=== PATIENT | female | born 2000 | race Caucasian/White ===

== ENCOUNTER 2018-04-22 23:21 | Emergency (ER) | payer MEDICAID ==
--- NOTE | 2018-04-23 00:26 | ER Document Report ---
ED Medical Screen (RME) - General Chief Complaint: Probable Seizure Stated Complaint: POSSIBLE SEIZURE Time Seen by Provider: 04/23/18 00:24 Mode of Arrival: Ambulatory Information source: Patient Notes: 17-year-old female presents to ED for complaint of possible seizure at work at [employer]. She states she was at work when she suddenly got hot and dizzy. She states her hands felt numb and shaking. She states there was a customer trying to talk to her and she states she had to go to the bathroom. She states while she was in there she became very hot and told a staff member she had to go back and sit down at a andrade. She states on her way back to the bruise she began getting more dizzy and fell trying to hold onto the trash can. She states she could hear her by talking around her but she could not answer them or see them. She states the customer was trying to dump water down her throat and she was gagging and choking. She states that she knows her fingers were real stiff and she could not bend them and her manager film Told her to relax and let her bend the fingers. Patient states she could hear throughout the whole episode. 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 She states she has been having these seizures since she was a child. Patient is alert and oriented respirations regular and on labored speaking in full sentences walking with a even steady gait. I have greeted and performed a rapid initial assessment of this patient. A comprehensive ED assessment and evaluation of the patient, analysis of test results and completion of medical decision making process will be conducted by an additional ED providers. TRAVEL OUTSIDE OF THE [place] IN LAST 30 DAYS: No - Related Data Allergies/Adverse Reactions: No Known Drug Allergies Allergy (Verified 04/25/16 17:30) mosquitoes Allergy (Unknown, Uncoded 04/19/16 01:22) Edema Past Medical History - Social History Family history: DM, Malignancy Endocrine Medical History: Reports: Hx Diabetes Mellitus Type 2 - patient takes Glyburide Psychiatric Medical History: Reports: Hx Anxiety, Hx Bipolar Disorder, Hx Depression - Immunizations Immunizations up to date: Yes Hx Diphtheria, Pertussis, Tetanus Vaccination: Yes Physical Exam - Vital signs Vitals: Temp Pulse Resp BP Pulse Ox 98.7 F 91 H 16 127/68 H 100 04/22/18 23:29 04/22/18 23:29 04/22/18 23:29 04/22/18 23:29 04/22/18 23:29 Course - Vital Signs Vital signs: Temp Pulse Resp BP Pulse Ox 98.7 F 91 H 16 127/68 H 100 04/22/18 23:29 04/22/18 23:29 04/22/18 23:29 04/22/18 23:29 04/22/18 23:29 Doctor's Discharge - Discharge Referrals: BRENNON DANIEL MD [Primary Care Provider] - Follow up as needed
[2018-04-23 00:51] LABS: ABSOLUTE BASOPHILS # (AUTO) 0.1 10^3/uL (0.0-0.2); ABSOLUTE EOSINOPHILS # (AUTO) 0.4 10^3/uL (0.0-0.6); ABSOLUTE LYMPHOCYTES (AUTO) 4.8 10^3/uL (0.5-4.7); ABSOLUTE MONOCYTES (AUTO) 0.8 10^3/uL (0.1-1.4); ABSOLUTE NEUT (AUTO) 8.9 10^3/uL (1.7-8.2); BASOPHILS % (AUTO) 0.7 % (0-2); EOSINOPHILS % (AUTO) 2.4 % (0-6); HEMATOCRIT 41.9 % (36.0-47.0); HEMOGLOBIN 14.1 g/dL (12.0-15.5); MEAN CORPUSCULAR HEMOGLOBIN 30.2 pg (27.0-33.4); MEAN CORPUSCULAR HGB CONC 33.7 g/dL (32.0-36.0); MEAN CORPUSCULAR VOLUME 90 fl (80-97); MONOCYTES % (AUTO) 5.2 % (3-13); PLATELET COUNT 236 10^3/uL (150-450); RED BLOOD COUNT 4.67 10^6/uL (3.72-5.28); RED CELL DISTRIBUTION WIDTH 13.3 % (11.5-14.0); SEGMENTED NEUTROPHILS % (AUTO) 59.7 % (42-78); TOTAL CELLS COUNTED % (AUTO) 100 %; WHITE BLOOD COUNT 14.9 10^3/uL (4.0-10.5)
[2018-04-23 00:58] LABS: APPEARANCE,URINE CLOUDY; BILIRUBIN,URINE NEGATIVE (NEGATIVE); COLOR,URINE YELLOW; GLUCOSE, URINE NEGATIVE (NEGATIVE); KETONES,URINE TRACE mg/dL (NEGATIVE); LEUKOCYTE ESTERASE,URINE MODERATE (NEGATIVE); NITRITE,URINE NEGATIVE (NEGATIVE); PROTEIN,URINE NEGATIVE (NEGATIVE); URINE SPECIFIC GRAVITY 1.026
[2018-04-23 01:03] LABS: ALANINE AMINOTRANSFERASE 27 U/L (5-35); ALBUMIN 4.6 g/dL (3.7-5.6); ALKALINE PHOSPHATASE 100 U/L (50-135); ANION GAP 10 (5-19); ASPARTATE AMINO TRANSFERASE 23 U/L (5-30); BILIRUBIN,DIRECT 0.2 mg/dL (0.0-0.4); BILIRUBIN,TOTAL 0.5 mg/dL (0.2-1.3); BLOOD UREA NITROGEN 14 mg/dL (7-20); CARBON DIOXIDE 26 mmol/L (22-30); CHLORIDE 103 mmol/L (98-107); GLUCOSE 118 mg/dL (75-110); POTASSIUM 4.4 mmol/L (3.6-5.0); SODIUM 139.4 mmol/L (137-145); TOTAL PROTEIN 7.7 g/dL (6.3-8.2)
--- NOTE | 2018-04-23 02:11 | ER Document Report ---
ED General - General Chief Complaint: Probable Seizure Stated Complaint: POSSIBLE SEIZURE Time Seen by Provider: 04/23/18 00:24 Mode of Arrival: Ambulatory Notes: Patient is a 17-year-old female who presents with chief complaint of possible seizure while she was at work. Patient states that she has a history of pseudoseizures. Patient reports she was at work when she began shaking, she states she could hear everything going on around her however she could not respond. She states that she used to have pseudoseizures when she was in high school and was placed on disability for them. She states that she was taken off of disability 1 year ago and has begun working now two jobs and has had an increase in the number of seizures she is having. TRAVEL OUTSIDE OF THE [place] IN LAST 30 DAYS: No - Related Data Allergies/Adverse Reactions: No Known Drug Allergies Allergy (Verified 04/25/16 17:30) mosquitoes Allergy (Unknown, Uncoded 04/19/16 01:22) Edema Past Medical History - General Information source: Patient - Social History Smoking Status: Current Some Day Smoker Frequency of alcohol use: None Drug Abuse: None Family History: Arthritis, DM, Hypertension, Malignancy, Thyroid Disfunction Endocrine Medical History: Reports: Hx Diabetes Mellitus Type 2 - patient takes Glyburide Psychiatric Medical History: Reports: Hx Anxiety, Hx Bipolar Disorder, Hx Depression Surgical Hx: Negative - Immunizations Immunizations up to date: Yes Hx Diphtheria, Pertussis, Tetanus Vaccination: Yes Review of Systems - Review of Systems Neurological/Psychological: Seizure -: Yes All other systems reviewed and negative Physical Exam - Vital signs Vitals: Temp Pulse Resp BP Pulse Ox 98.7 F 91 H 16 127/68 H 100 04/22/18 23:29 04/22/18 23:29 04/22/18 23:29 04/22/18 23:29 04/22/18 23:29 - Notes Notes: PHYSICAL EXAMINATION: GENERAL: Well-appearing, well-nourished and in no acute distress. HEAD: Atraumatic, normocephalic. EYES: Pupils equal round and reactive to light, extraocular movements intact, conjunctiva are normal. ENT: Nares patent, oropharynx clear without exudates. Moist mucous membranes. NECK: Normal range of motion, supple without lymphadenopathy LUNGS: Breath sounds clear to auscultation bilaterally and equal. No wheezes rales or rhonchi. HEART: Regular rate and rhythm without murmurs ABDOMEN: Soft, nontender, nondistended abdomen. No guarding, no rebound. No masses appreciated. Female : deferred Musculoskeletal: Normal range of motion, no pitting or edema. No cyanosis. NEUROLOGICAL: Cranial nerves grossly intact. Normal speech, normal gait. Normal sensory, motor exams PSYCH: Normal mood, normal affect. SKIN: Warm, Dry, normal turgor, no rashes or lesions noted. Course - Re-evaluation Re-evalutation: Patient is alert, oriented on arrival. Patient recalls all events during her "seizure". Laboratory studies were ordered by triage provider. Patient has no acute complaints. Her laboratory studies are all unremarkable. Patient will be discharged home at this time in stable condition. - Vital Signs Vital signs: Temp Pulse Resp BP Pulse Ox 98.3 F 91 H 21 96/62 L 100 04/23/18 03:32 04/22/18 23:29 04/23/18 03:01 04/23/18 03:01 04/23/18 03:01 - Laboratory Result Diagrams: 04/23/18 00:30 04/23/18 00:30 Laboratory results interpreted by me: 04/23/18 04/23/18 04/23/18 00:30 00:30 00:30 WBC 14.9 H Absolute Neutrophils 8.9 H Absolute Lymphocytes 4.8 H Glucose 118 H Urine Ketones TRACE H Urine Urobilinogen 2.0 H Ur Leukocyte Esterase MODERATE H Discharge - Discharge Clinical Impression: Pseudoseizure Condition: Stable Disposition: HOME, SELF-CARE Additional Instructions: You have likely suffered from another one of your pseudoseizures. Your workup today was unremarkable. Please follow-up with your primary care provider. You may want to consider being seen by a psychiatrist or psychologist for further evaluation of the cause of your pseudoseizures. Return to the emergency department for any worsening symptoms or concerns. Forms: Special Work Note Referrals: BRENNON DANIEL MD [ACTIVE STAFF] - Follow up as needed
[2018-04-23 03:32] VITALS: BP 96/62
== END 2018-04-23 03:30 | disposition home or self-care (01) ==
LOC: ER 23:21
DX: R56.9 Unspecified convulsions (principal); F17.200 Nicotine dependence, unspecified, uncomplicated; E11.9 Type 2 diabetes mellitus without complications; Z79.84 Long term (current) use of oral hypoglycemic drugs
CPT/HCPCS: 36415; 80053; 81001; 84703; 85025; 99284

== ENCOUNTER 2018-05-14 13:35 | Emergency (ER) | payer MEDICAID ==
[2018-05-14] MEDS ORDERED: LIDOCAINE 2% VISCOUS SOLN 20 ML UDCUP PO ONE (13:47)
[2018-05-14 13:55] VITALS: BP 125/65
--- NOTE | 2018-05-14 14:04 | ER Document Report ---
HPI - HPI Pain Level: 4 Notes: Patient is a 18-year-old female who presents to the ED complaining of left upper dental pain #151 week. She has not noticed any obvious abscess or purulent discharge. Patient states that she is still able to eat and drink w/o difficulty. She has tried some [id number] meds with minimal relief. She cannot get scheduled with her dentist for 1mo. She was seen by her PCM who placed her on PCN VK 2 days ago. No acute changes to symptoms. No fractured teeth. No other concerns or complaints. Denies any headache, fever, head injury, neck pain, hoarseness, drooling, URI, sore throat, chest pain, palpitations, syncope, cough, shortness of breath, wheeze, dyspnea, abdominal pain, nausea/vomiting/diarrhea, urinary retention, dysuria, hematuria, or rash. Pt needs work note for today. - ROS Systems Reviewed and Negative: Yes All other systems reviewed and negative - REPRODUCTIVE Reproductive: REPORTS: : Past Medical History - Social History Smoking Status: Unknown if Ever Smoked Family History: Arthritis, DM, Hypertension, Malignancy, Thyroid Disfunction Endocrine Medical History: Reports: Hx Diabetes Mellitus Type 2 - patient takes Glyburide Renal/ Medical History: Denies: Hx Peritoneal Dialysis Psychiatric Medical History: Reports: Hx Anxiety, Hx Bipolar Disorder, Hx Depression - Immunizations Immunizations up to date: Yes Hx Diphtheria, Pertussis, Tetanus Vaccination: Yes Vertical Provider Document - CONSTITUTIONAL Agree With Documented VS: Yes Notes: PHYSICAL EXAMINATION: GENERAL: Well-appearing, well-nourished and in no acute distress. HEAD: Atraumatic, normocephalic. EYES: Pupils equal round and reactive to light, extraocular movements intact, sclera anicteric, conjunctiva are normal. ENT: EAC clear b/l. TM's intact b/l without erythema, fluid, or perforation. Nares patent and without discharge. oropharynx clear without exudates. No tonsilar hypertrophy or erythema. Moist mucous membranes. No sinus tenderness. Uvula midline. No palatine shift. No tongue protrusion. No respiratory compromise. Mouth: Fair dentition. + mild gingivitis. No obvious abscess or discharge noted. No facial swelling. + tenderness to tooth #15. NECK: Normal range of motion, supple without lymphadenopathy. No rigidity/ meningismus. LUNGS: Breath sounds clear to auscultation bilaterally and equal. No wheezes rales or rhonchi. HEART: Regular rate and rhythm without murmurs, rubs, gallops. NEUROLOGICAL: Cranial nerves grossly intact. Normal speech, normal gait. PSYCH: Normal mood, normal affect. SKIN: Warm, Dry, normal turgor, no rashes or lesions noted. - INFECTION CONTROL TRAVEL OUTSIDE OF THE [place] IN LAST 30 DAYS: No Course - Re-evaluation Re-evalutation: 05/14/18 14:02 Patient is an afebrile, well-hydrated, 18-year-old female who presents to the ED with dental pain, suspect nerve root etiology versus infection. Vitals are acceptable. PE is otherwise unremarkable. No I&D, labs, or imaging warranted at this time based on H&P. Viscous lidocaine dispensed today. Patient already has a prescription for penicillin which she has been taking. Low suspicion for any meningitis, sepsis, peritonsillar/pharyngeal abscess, respiratory compromise , Damon's, temporal arteritis, or other emergent systemic condition at this time. Patient is aware this condition can change from initial presentation and she needs to monitor symptoms closely. Conservative measures otherwise for symptoms. Try calling around other dentist to get in earlier if not keep appointment in June. Recheck with your PCM this week as well. Return to the ED with any worsening/concerning symptoms otherwise as reviewed in discharge. Patient is in agreement. - Vital Signs Vital signs: Temp Pulse Resp BP Pulse Ox 97.6 F 61 16 125/65 99 05/14/18 13:54 05/14/18 13:54 05/14/18 13:54 05/14/18 13:54 05/14/18 13:54 Discharge - Discharge Clinical Impression: Pain, dental Condition: Stable Disposition: HOME, SELF-CARE Instructions: Toothache ([facility]) Additional Instructions: [place] and floss twice daily Maintain fluid intake Take antibiotics as directed Mouthwash, salt water gargles, peroxide rinse as needed Tylenol/ibuprofen as needed Recheck with PCM this week Call today/tomorrow and schedule an appointment with your dentist for further evaluation and/or keep appointment in June Return to the ED with any worsening symptoms and/or development of fever, headache, facial swelling, swelling of lips/tongue/throat, trouble swallowing, drooling, hoarseness, neck pain/stiffness, chest pain, palpitations, syncope, shortness of breath, trouble breathing, abdominal pain, n/v/d, numbness/tingling , or other worsening symptoms that are concerning to you. Forms: Return to Work Referrals: MARLEEN WEN DO [Primary Care Provider] - Follow up in 3-5 days [facility] [Provider Group] - Follow up in 3-5 days
== END 2018-05-14 14:11 | disposition home or self-care (01) ==
LOC: ER 13:35
DX: K08.9 Disorder of teeth and supporting structures, unspecified (principal)
CPT/HCPCS: 99282; J3490

== ENCOUNTER 2018-12-18 18:41 | Emergency (ER) | payer MEDICAID ==
[2018-12-18 18:50] VITALS: BP 123/42
== END 2018-12-18 18:59 | disposition left against medical advice (07) ==
LOC: ER 18:41
DX: Z53.21 Procedure and treatment not carried out due to patient leaving prior to being seen by health care provider (principal); R56.9 Unspecified convulsions

== ENCOUNTER 2019-10-01 21:28 | Emergency (ER) | payer MEDICAID ==
[2019-10-01] MEDS ORDERED: ACETAMINOPHEN 325 MG TABLET PO ONE (21:37)
--- NOTE | 2019-10-01 21:38 | ER Document Report ---
ED Medical Screen (RME) - General Chief Complaint: Back Pain Stated Complaint: SEVERE BACK PAIN Time Seen by Provider: 10/01/19 21:31 Mode of Arrival: Ambulatory Information source: Patient Notes: Patient states that she was helping to move a dresser, slipped and fell hitting her lower back against the stairs. Injury occurred about 3 weeks ago. Patient states that pain seems to be worsening recently. Patient denies any urinary retention or incontinence symptoms. Patient states that the pain does feel like it radiates towards the pelvic area and into her thighs. I have greeted and performed a rapid initial assessment of this patient. A comprehensive ED assessment and evaluation of the patient, analysis of test results and completion of the medical decision making process will be conducted by additional ED providers. TRAVEL OUTSIDE OF THE [place] IN LAST 30 DAYS: No - Related Data Allergies/Adverse Reactions: No Known Drug Allergies Allergy (Verified 12/18/18 18:43) mosquitoes Allergy (Unknown, Uncoded 12/18/18 18:43) Edema Past Medical History - Social History Family history: DM, Malignancy Endocrine Medical History: Reports: Hx Diabetes Mellitus Type 2 - patient takes Glyburide Renal/ Medical History: Denies: Hx Peritoneal Dialysis Psychiatric Medical History: Reports: Hx Anxiety, Hx Bipolar Disorder, Hx Depression - Immunizations Immunizations up to date: Yes Hx Diphtheria, Pertussis, Tetanus Vaccination: Yes Physical Exam - Vital signs Vitals: Temp Pulse Resp BP Pulse Ox 98.4 F 85 13 152/71 H 98 10/01/19 21:31 10/01/19 21:31 10/01/19 21:31 10/01/19 21:31 10/01/19 21:31 - General General appearance: Appears well, Alert Notes: Thoracolumbar midline spinal tenderness, no saddle anesthesia, normal gait Course - Re-evaluation Re-evalutation: 10/01/19 21:38 Patient has an IUD and does not have sexual intercourse with men, no concern about - Vital Signs Vital signs: Temp Pulse Resp BP Pulse Ox 98.4 F 85 13 152/71 H 98 10/01/19 21:31 10/01/19 21:31 10/01/19 21:31 10/01/19 21:31 10/01/19 21:31
--- NOTE | 2019-10-01 22:12 | RADIOLOGY REPORT (SQ) ---
EXAM DESCRIPTION: XR THORACIC SPINE 2 VIEWS COMPLETED DATE/TME: 10/01/2019 21:37 CLINICAL HISTORY: 19 years, Female, fall, back pain COMPARISON: None. NUMBER OF VIEWS: TECHNIQUE: LIMITATIONS: None. FINDINGS: No fracture or dislocation. Vertebral bodies are normal in height. No evidence of paraspinal mass. IMPRESSION: No fracture or dislocation. copyright 2010 [employer]- All Rights Reserved
--- NOTE | 2019-10-01 22:14 | RADIOLOGY REPORT (SQ) ---
EXAM DESCRIPTION: XR LUMBAR SPINE ANTEROPOSTERIOR, LATERAL, AND OBLIQUES, 5 views COMPLETED DATE/TME: 10/01/2019 21:37 CLINICAL HISTORY: 19 years, Female, fall, back pain COMPARISON: None. NUMBER OF VIEWS: TECHNIQUE: LIMITATIONS: None. FINDINGS: 5 views of the lumbar spine were obtained. No fracture or dislocation. Vertebral bodies and disc spaces are normal in height. Mineralization of bone appears normal. There is an IUD in the pelvis. IMPRESSION: No fracture or dislocation. copyright 2010 [employer]- All Rights Reserved
[2019-10-01 22:44] VITALS: BP 130/70
--- NOTE | 2019-10-01 22:47 | ER Document Report ---
ED Neck/Back Problem - General Chief Complaint: Low Back Pain Stated Complaint: SEVERE BACK PAIN Time Seen by Provider: 10/01/19 21:31 Mode of Arrival: Ambulatory Information source: Patient Notes: 19-year-old female presented to ED for complaint of pain to her back after she moved a dresser 3 weeks ago and slipped and fell. She states she has not been to a primary care doctor in the last 3 weeks. She states she has been in so much pain that she has used a whole bottle of Advil in the last 3 weeks. She denies any other symptoms. She denies any urinary symptoms. She denies any other problems at this time. She states she does smoke 7 cigarettes a day rarely drinks and does not do drugs. She works at [email or web address] and lives with her . We will give her a prescription for some Flexeril and she continued to use Tylenol or Motrin for her pain. She was given Tylenol [place]. Her x-rays are negative for any abnormalities. Her pain is on both sides of her back with no vertebral tenderness. This is a muscle pain. TRAVEL OUTSIDE OF THE [place] IN LAST 30 DAYS: No - HPI Patient complains to provider of: Pain, Lower back Onset: Other - 3 weeks ago Where: Home, Indoors Onset: Chronic Timing: Still present Quality of pain: Sharp Severity: Moderate Pain Level: 3 Context: Fall/near-fall Recent injury: Yes Associated symptoms: Like prior neck/back pain, Lower back pain. denies: Constipation, Incontinence, Motor loss, Numbness/tingling, Radiation to chest Exacerbated by: Nothing Relieved by: Nothing Similar symptoms previously: Yes Recently seen / treated by doctor: No - Related Data Allergies/Adverse Reactions: No Known Drug Allergies Allergy (Verified 10/01/19 21:58) mosquitoes Allergy (Unknown, Uncoded 10/01/19 21:58) Edema Home Medications: Insulin Pen. Lamictal. Anxiety meds Past Medical History - General Information source: Patient - Social History Smoking Status: Current Every Day Smoker Chew tobacco use (# tins/day): No Frequency of alcohol use: None Drug Abuse: None Lives with: Spouse/Significant other Family History: Arthritis, DM, Hypertension, Malignancy, Thyroid Disfunction Patient has suicidal ideation: No Patient has homicidal ideation: No - Past Medical History Cardiac Medical History: Reports: None Pulmonary Medical History: Reports: None EENT Medical History: Reports: None Neurological Medical History: Denies: Hx Seizures - pseudoseizures Endocrine Medical History: Reports: Hx Diabetes Mellitus Type 2 - patient takes Glyburide Renal/ Medical History: Reports: None Malignancy Medical History: Reports: None GI Medical History: Reports: None Musculoskeletal Medical History: Reports None Skin Medical History: Reports None Psychiatric Medical History: Reports: Hx Anxiety, Hx Bipolar Disorder, Hx Depression Traumatic Medical History: Reports: None Infectious Medical History: Reports: None Surgical Hx: Negative Past Surgical History: Reports: None - Immunizations Immunizations up to date: Yes Hx Diphtheria, Pertussis, Tetanus Vaccination: Yes Review of Systems - Review of Systems Constitutional: No symptoms reported EENT: No symptoms reported Cardiovascular: No symptoms reported Respiratory: No symptoms reported Gastrointestinal: No symptoms reported Genitourinary: No symptoms reported Female Genitourinary: No symptoms reported Musculoskeletal: Back pain, Muscle pain, Muscle stiffness Skin: No symptoms reported Hematologic/Lymphatic: No symptoms reported Neurological/Psychological: No symptoms reported -: Yes All other systems reviewed and negative Physical Exam - Vital signs Vitals: Temp Pulse Resp BP Pulse Ox 98.4 F 85 13 152/71 H 98 10/01/19 21:31 10/01/19 21:31 10/01/19 21:31 10/01/19 21:31 10/01/19 21:31 Interpretation: Normal - General General appearance: Appears well, Alert - HEENT Head: Normocephalic, Atraumatic Eyes: Normal Pupils: PERRL - Respiratory Respiratory status: No respiratory distress Chest status: Nontender Breath sounds: Normal Chest palpation: Normal - Cardiovascular Rhythm: Regular Heart sounds: Normal auscultation Murmur: No - Abdominal Inspection: Normal Distension: No distension Bowel sounds: Normal Tenderness: Nontender Organomegaly: No organomegaly - Back Back: Normal, Tender. No: Deformity/step-off, CVA tenderness, Vertebra tenderness, Scars, Scoliosis, Wounds, Other Notes: No signs or symptoms of cauda equina, no loss control of bowel bladder, no loss of sensation or use of the lower extremities no saddle anesthesia. - Extremities General upper extremity: Normal inspection, Nontender, Normal color, Normal ROM, Normal temperature General lower extremity: Normal inspection, Nontender, Normal color, Normal ROM, Normal temperature, Normal weight bearing. No: Krista's sign - Neurological Neuro grossly intact: Yes Cognition: Normal Orientation: AAOx4 [place] Coma Scale Eye Opening: Spontaneous [place] Coma Scale Verbal: Oriented [place] Coma Scale Motor: Obeys Commands Abraham Coma Scale Total: 15 Speech: Normal Motor strength normal: LUE, RUE, LLE, RLE Sensory: Normal - Psychological Associated symptoms: Normal affect, Normal mood - Skin Skin Temperature: Warm Skin Moisture: Dry Skin Color: Normal Course - Re-evaluation Re-evalutation: 10/01/19 22:50 After performing a Medical Screening Examination, I estimate there is LOW risk for EXPANDING OR RUPTURED ABDOMINAL AORTIC ANEURYSM, CAUDA EQUINA SYNDROME, EPIDURAL MASS LESION, or HERNIATED DISK CAUSING SEVERE SPINAL STENOSIS, thus I consider the discharge disposition reasonable. I have reevaluated this patient multiple times and no significant life threatening changes are noted. The patient and I have discussed the diagnosis and risks, and we agree with dis charging home and close follow-up. We also discussed returning to the Emergency Department immediately if new or worsening symptoms occur with the understanding that symptoms and presentations can change. We have discussed the symptoms which are most concerning (e.g., saddle anesthesia, urinary or bowel incontinence or retention, changing or worsening pain) that necessitate immediate return. - Vital Signs Vital signs: Temp Pulse Resp BP Pulse Ox 98.4 F 85 13 152/71 H 98 10/01/19 21:31 10/01/19 21:31 10/01/19 21:31 10/01/19 21:31 10/01/19 21:31 - Diagnostic Test Radiology reviewed: Image reviewed, Reports reviewed Discharge - Discharge Clinical Impression: Low back pain Qualifiers: Chronicity: acute Back pain laterality: bilateral Sciatica presence: without sciatica Qualified Code(s): M54.5 - Low back pain Condition: Stable Disposition: HOME, SELF-CARE Additional Instructions: LOW BACK PAIN: Three out of every four people will have an episode of disabling back pain during their lifetime. Most commonly the pain is due to straining of the muscles and ligaments in the low back. Usual treatment includes: (1) Rest on a firm surface. Avoid lying on your stomach. (2) Ice pack the painful area. After a few days, gentle heat may be used intermittently to relax the area, or ice packs can be continued. (3) Medication may be needed -- muscle relaxers and antiinflammatory medicines are commonly used. (4) As the back improves, exercises are prescribed to strengthen the back and abdominal muscles. Your doctor will advise you on the proper care for your back at each stage in your recovery. You may be better in a few days -- or healing may take several weeks. If new symptoms of a "herniated disc" (radiation of pain, numbness, or tingling down the back of the leg or weakness in the leg) occur, you should be re-examined. Further testing may be necessary. MUSCLE RELAXERS: Muscle relaxing medications are usually prescribed for acute muscle spasm or injury to the neck and back. They are often combined with antiinflammatory pain medication for increased relief. You may stop the muscle relaxer when the pain and stiffness have improved. Start the medication again if spasms recur. Muscle relaxers may cause drowsiness, especially with the first dose. Do not operate machinery or drive while under the effects of the medication. Most muscle relaxers last up to 24 hours. Do not combine the medication with alcohol. ICE PACKS: Apply ice packs frequently against the painful area. Many different schedules are recommended, such as "20 minutes on, 20 minutes off" or "one hour ice, two hours rest." If you need to work, you may need to go longer between ice treatments. You should plan to have the area ice packed AT LEAST one fourth of the time. The ice should be applied over the wrap, tape, or splint, or over a layer of cloth -- not directly against the skin. Some ice bags have a built-in cloth and can be put directly on the skin. WARM PACKS: After approximately two days, apply gentle heat (such as a heating pad or hot water bottle) for about 20 to 30 minutes about every two hours -- at least four times daily. Warmth and elevation will help you make a more rapid recovery, and will ease the pain considerably. Do not use HOT heat, and never apply heat for longer than 30 minutes. The continuous heat can invisibly damage skin and muscles -- even when no burn is seen on the surface. Damaged muscles can make you MORE sore. Stretching Exercises for the Back The physician has recommended that you begin stretching exercises for your back. These are often used even while the back is painful. However, you should notify the physician if the activities seem to increase your pain. PELVIC TILT: Lie flat on your back with knees bent. Tighten your stomach and buttock muscles so it flattens your lower back against the floor. Hold 10 seconds. Repeat 10 times, twice daily. KNEE RAISE: Lying on the back with knees bent, raise one knee to your chest, then the other. Hold both knees against the chest 10 seconds, then lower one knee at a time. Repeat 10 times, twice daily. PARTIAL TRUNK RAISE: Lie face down, arms at your sides. Keeping your waist on the floor, use your arms raise your chest up. Support yourself on your elbows for 30 seconds. Repeat twice daily, increasing the time to two minutes as you recover. FOLLOW-UP CARE: If you have been referred to a physician for follow-up care, call the physicians office for an appointment as you were instructed or within the next two days. If you experience worsening or a significant change in your symptoms, notify the physician immediately or return to the Emergency Department at any time for re-evaluation. Prescriptions: Cyclobenzaprine HCl [Flexeril 10 mg Tablet] 10 mg PO TIDP PRN #15 tab PRN Reason: Forms: Elevated Blood Pressure, Smoking Cessation Education, Return to Work Referrals: CATIA WILKINSON MD [ASSOCIATE] - Follow up as needed
== END 2019-10-01 22:50 | disposition home or self-care (01) ==
LOC: ER 21:28
DX: M54.5 Low back pain (principal); W01.198A Fall on same level from slipping, tripping and stumbling with subsequent striking against other object, initial encounter; E11.9 Type 2 diabetes mellitus without complications; F41.9 Anxiety disorder, unspecified; F17.210 Nicotine dependence, cigarettes, uncomplicated; Z97.5 Presence of (intrauterine) contraceptive device
CPT/HCPCS: 99283; 72110; 72070; J3490

== ENCOUNTER 2019-10-29 13:19 | Emergency (ER) | payer MEDICAID ==
[2019-10-29] MEDS ORDERED: ACETAMINOPHEN 325 MG TABLET PO ONE (13:35)
--- NOTE | 2019-10-29 13:40 | ER Document Report ---
ED Hand/Wrist Injury - General Chief Complaint: Hand Injury Stated Complaint: RIGHT HAND PAIN Time Seen by Provider: 10/29/19 13:34 Primary Care Provider: KATERINA SZYMANSKI MD [ACTIVE STAFF] - Follow up as needed REJI CARRILLO DO [ACTIVE STAFF] - Follow up as needed Mode of Arrival: Ambulatory Information source: Patient Notes: 19-year-old female presented to ED for complaint of pain to the right hand. She punched a wall yesterday. She states her hand is very painful. Patient is alert oriented respirations regular nonlabored speaking in full sentences. TRAVEL OUTSIDE OF THE [place] IN LAST 30 DAYS: No - HPI Injury to: Hand, Wrist Onset: Yesterday Where: Indoors, Public place Timing: Waxing and waning Quality of pain: Sharp, Throbbing Severity: Moderate Pain Level: 4 Context: Other - Punched a wall - Related Data Allergies/Adverse Reactions: No Known Drug Allergies Allergy (Verified 10/01/19 21:58) mosquitoes Allergy (Unknown, Uncoded 10/01/19 21:58) Edema Past Medical History - General Information source: Patient - Social History Smoking Status: Current Every Day Smoker Cigarette use (# per day): Yes - Half pack per day Smoking Education Provided: Yes - 4 minutes Frequency of alcohol use: Rare - Was drinking last night Drug Abuse: None Lives with: Family Family History: Arthritis, DM, Hypertension, Malignancy, Thyroid Disfunction Patient has suicidal ideation: No Patient has homicidal ideation: No - Past Medical History Cardiac Medical History: Reports: None Pulmonary Medical History: Reports: None EENT Medical History: Reports: None Neurological Medical History: Denies: Hx Seizures - pseudoseizures Endocrine Medical History: Reports: Hx Diabetes Mellitus Type 2 - patient takes Glyburide Renal/ Medical History: Reports: None Malignancy Medical History: Reports: None GI Medical History: Reports: None Musculoskeletal Medical History: Reports None Skin Medical History: Reports None Psychiatric Medical History: Reports: Hx Anxiety, Hx Attention Deficit Hyperactivity Disorder, Hx Bipolar Disorder, Hx Depression Traumatic Medical History: Reports: None Infectious Medical History: Reports: None Surgical Hx: Negative Past Surgical History: Reports: None - Immunizations Immunizations up to date: Yes Hx Diphtheria, Pertussis, Tetanus Vaccination: Yes Review of Systems - Review of Systems Constitutional: No symptoms reported EENT: No symptoms reported Cardiovascular: No symptoms reported Respiratory: No symptoms reported Gastrointestinal: No symptoms reported Genitourinary: No symptoms reported Female Genitourinary: No symptoms reported Musculoskeletal: Other - Right hand pain and swelling Skin: No symptoms reported Hematologic/Lymphatic: No symptoms reported Neurological/Psychological: No symptoms reported Physical Exam - Vital signs Vitals: Temp Pulse Resp BP Pulse Ox 98.4 F 89 16 135/92 H 99 10/29/19 13:26 10/29/19 13:26 10/29/19 13:26 10/29/19 13:26 10/29/19 13:26 Interpretation: Normal - General General appearance: Appears well, Alert - HEENT Head: Normocephalic, Atraumatic Eyes: Normal Pupils: PERRL - Respiratory Respiratory status: No respiratory distress Chest status: Nontender Breath sounds: Normal Chest palpation: Normal - Cardiovascular Rhythm: Regular Heart sounds: Normal auscultation Murmur: No - Abdominal Inspection: Normal Distension: No distension Bowel sounds: Normal Tenderness: Nontender Organomegaly: No organomegaly - Back Back: Normal, Nontender - Extremities General upper extremity: Normal color, Normal temperature General lower extremity: Normal inspection, Nontender, Normal color, Normal ROM, Normal temperature, Normal weight bearing. No: Krista's sign Hand: Tender, Ecchymosis, No evidence of human bite, No evidence of FB, Swelling - Neurological Neuro grossly intact: Yes Cognition: Normal Orientation: AAOx4 [place] Coma Scale Eye Opening: Spontaneous [place] Coma Scale Verbal: Oriented [place] Coma Scale Motor: Obeys Commands [place] Coma Scale Total: 15 Speech: Normal Motor strength normal: LUE, RUE, LLE, RLE Sensory: Normal - Psychological Associated symptoms: Normal affect, Normal mood - Skin Skin Temperature: Warm Skin Moisture: Dry Skin Color: Normal Course - Re-evaluation Re-evalutation: 10/29/19 15:21 Discussed x-ray with patient and written report of x-ray given to patient for follow-up with primary care and/or orthopedics. Patient was instructed to elevate ice the hand and wrist. Patient verbalized understanding and agreement with treatment plan and patient was discharged home. - Vital Signs Vital signs: Temp Pulse Resp BP Pulse Ox 98.4 F 77 18 131/63 H 98 10/29/19 15:11 10/29/19 15:11 10/29/19 15:11 10/29/19 15:11 10/29/19 15:11 - Diagnostic Test Radiology reviewed: Image reviewed, Reports reviewed Procedures - Immobilization Right Wrist Time completed: 15:21 Pre-Proc Neuro Vasc Exam: Normal Immobilizer type: Cock-up Performed by: NELL Post-Proc Neuro Vasc Exam: Normal Alignment checked and good: Yes Discharge - Discharge Clinical Impression: Hand contusion Qualifiers: Encounter type: initial encounter Laterality: right Qualified Code(s): S60.221A - Contusion of right hand, initial encounter Condition: Stable Disposition: HOME, SELF-CARE Additional Instructions: CONTUSION: Your injury has resulted in a contusion -- a crushing of the deep tissues. No injury to important structures was detected during the physician's exam. Contusions vary in the amount of pain they cause, and in the length of time required for healing. Typically, the area will become bruised, and will remain painful to touch for two or three weeks. However, most patients are back to working and playing within a few days. After the initial period of rest and cold-packs, your symptoms (together with the doctor's recommendations) will determine how rapidly you can get back to full activity. Usually this means "do what feels okay, but don't do things that hurt." If re-examination was recommended, it's important to follow up as instructed. Call the doctor or return any time if pain increases, if swelling becomes severe, if you develop numbness or weakness in an injured extremity, or if any other alarming symptoms occur. USE OF TYLENOL (ACETAMINOPHEN): Acetaminophen may be taken for pain relief or fever control. It's much safer than aspirin, offering a wider range of "safe" dosages. It is safe during . Some brand names are Tylenol, Panadol, Datril, Anacin 3, Tempra, and Liquiprin. Acetaminophen can be repeated every four hours. The following are maximum recommended dosages: WEIGHT Dose Drops Elixir Chewable(80mg) (LBS.) drprs=droppers tsp=teaspoon 6 40 mg 0.4 ml (1/2) 6-11 80 mg 0.8 ml (full) tsp 1 tab 12-16 120 mg 1 1/2 drprs 3/4 tsp 1 1/2 tabs 17-23 160 mg 2 drprs 1 tsp 2 tabs 24-30 240 mg 3 drprs 1 1/2 tsp 3 tabs 30-35 320 mg 2 tsp 4 tabs 36-41 360 mg 2 1/4 tsp 4 1/2 tabs 42-47 400 mg 2 1/2 tsp 5 tabs 48-53 480 mg 3 tsp 6 tabs 54-59 520 mg 3 1/4 tsp 6 1/2 tabs 60-64 560 mg 3 1/2 tsp 7 tabs 65-70 600 mg 3 3/4 tsp 7 1/2 tabs 71-76 640 mg 4 tsp 8 tabs 77-82 720 mg 4 1/2 tsp 9 tabs 83-88 800 mg 5 tsp 10 tabs >89 pounds or adults 650 mg to 900 mg Acetaminophen can be repeated every four hours. Maximum dose not to exceed 4000 mg a day. These maximum recommended dosages are slightly higher than the dosages written on the product container, but these dosages are very safe and below the toxic dosage for acetaminophen. Ice & Elevation Apply ice packs frequently against the painful area. Many different schedules are recommended, such as "20 minutes on, 20 minutes off" or "one hour ice, two hours rest." If you need to work, you may need to go longer between ice treatments. You should plan to have the area ice packed AT LEAST one-fourth of the time. The ice should be applied over the wrap, tape, or splint, or over a layer of cloth -- not directly against the skin. Some ice bags have a built-in cloth and can be put directly on the skin. Your injured part should be elevated as much as possible over the next 48 hours. Try to keep the injury above the level of the heart. Avoid use of the injured area. Elevation and rest will decrease the swelling. Ibuprofen Ibuprofen is an excellent, safe drug for pain control. In addition, it has potent antiinflammatory effects which are beneficial, especially in the treatment of injuries, arthritis, or tendonitis. It's best to take ibuprofen with food. Persons with ulcer disease or allergy to aspirin should notify their physician of this before taking ibuprofen. Take the medication exactly as prescribed. Don't take additional doses unless instructed to do so by your doctor. If you develop wheezing, shortness of breath, hives, faintness, stomach pain, vomiting, or dark black stools, return for re-evaluation at once. Splint Precautions A splint has been placed. This will protect the area while healing begins. Your problem does NOT normally require a cast. It MUST, however, be held still! Keep the splint on ALL THE TIME until instructed to remove it by the doctor. As you begin to use the area, be careful. You shouldn't do anything which causes discomfort -- you may disturb the injury even with the splint in place. After the initial period of rest and elevation, if splint does not prevent pain when you move, come back. You may require placement of a different splint, or a cast. If there is unexpected severe pain, or numbness, discoloration, or swelling beyond the splint, you should return at once. If you feel that the splint has broken or become loose, come back. FOLLOW-UP CARE: If you have been referred to a physician for follow-up care, call the physicians office for an appointment as you were instructed or within the next two days. If you experience worsening or a significant change in your symptoms, notify the physician immediately or return to the Emergency Department at any time for re-evaluation. Forms: Special Work Note, Smoking Cessation Education, Return to Work Referrals: KATERINA SZYMANSKI MD [ACTIVE STAFF] - Follow up as needed REJI CARRILLO DO [ACTIVE STAFF] - Follow up as needed
--- NOTE | 2019-10-29 15:01 | RADIOLOGY REPORT (SQ) ---
EXAM DESCRIPTION: HAND RIGHT 3 VIEWS IMAGES COMPLETED DATE/TIME: 10/29/2019 2:36 pm REASON FOR STUDY: Punched a wall last night COMPARISON: None. EXAM PARAMETERS: NUMBER OF VIEWS: Three views. TECHNIQUE: AP, lateral and oblique radiographic images acquired of the right hand. LIMITATIONS: None. FINDINGS: MINERALIZATION: Normal. BONES: No acute fracture or dislocation. No worrisome bone lesions. JOINTS: No effusions. SOFT TISSUES: No soft tissue swelling. No foreign body. OTHER: No other significant finding. IMPRESSION: NEGATIVE STUDY OF THE RIGHT HAND. NO RADIOGRAPHIC EVIDENCE OF ACUTE INJURY. TECHNICAL DOCUMENTATION: JOB ID: [id number] 2010 [employer]- All Rights Reserved Reading location - IP/workstation name: [email or web address]
--- NOTE | 2019-10-29 15:02 | RADIOLOGY REPORT (SQ) ---
EXAM DESCRIPTION: WRIST RIGHT 3 VIEWS IMAGES COMPLETED DATE/TIME: 10/29/2019 2:36 pm REASON FOR STUDY: Punched a wall last night COMPARISON: None. NUMBER OF VIEWS: Three views. TECHNIQUE: AP, lateral, and oblique radiographic images acquired of the right wrist. LIMITATIONS: None. FINDINGS: MINERALIZATION: Normal. BONES: No acute fracture or dislocation. No worrisome bone lesions. Normal alignment. SOFT TISSUES: No soft tissue swelling. No foreign body. OTHER: No other significant finding. IMPRESSION: NEGATIVE STUDY OF THE RIGHT WRIST. NO RADIOGRAPHIC EVIDENCE OF ACUTE INJURY. TECHNICAL DOCUMENTATION: JOB ID: [id number] 2010 [employer]- All Rights Reserved Reading location - IP/workstation name: [email or web address]
[2019-10-29 15:16] VITALS: BP 131/63
== END 2019-10-29 15:23 | disposition home or self-care (01) ==
LOC: ER 13:19
DX: S60.221A Contusion of right hand, initial encounter (principal); M79.641 Pain in right hand; W22.01XA Walked into wall, initial encounter; E11.9 Type 2 diabetes mellitus without complications; F17.210 Nicotine dependence, cigarettes, uncomplicated; Z71.6 Tobacco abuse counseling; Z91.038 Other insect allergy status
CPT/HCPCS: 99283; 73130; 73110; J3490

== ENCOUNTER 2019-12-05 08:26 | Emergency (ER) | payer MEDICAID ==
[2019-12-05 08:31] VITALS: BP 124/60
--- NOTE | 2019-12-05 09:41 | ER Document Report ---
ED General - General Chief Complaint: Rash Stated Complaint: RASH Time Seen by Provider: 12/05/19 09:12 Notes: 19-year-old female presenting today for 1 month of a papular rash located on left posterior forearm. It is very pruritic and she has tried yanv-[id number] eczema cream and children's Benadryl cream which have provided minimal relief. No associated redness or warmth. 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 The rash becomes worse with warmer temperatures. Sates that she is only here because her is here and figured she would get this checked out as well. LMP was one month ago. TRAVEL OUTSIDE OF THE [place] IN LAST 30 DAYS: No - Related Data Allergies/Adverse Reactions: No Known Drug Allergies Allergy (Verified 10/01/19 21:58) mosquitoes Allergy (Unknown, Uncoded 10/01/19 21:58) Edema Past Medical History - Social History Smoking Status: Current Every Day Smoker - 1/2 pack a day Family History: Arthritis, DM, Hypertension, Malignancy, Thyroid Disfunction Neurological Medical History: Denies: Hx Seizures - pseudoseizures Endocrine Medical History: Reports: Hx Diabetes Mellitus Type 2 - patient takes Glyburide Renal/ Medical History: Denies: Hx Peritoneal Dialysis Psychiatric Medical History: Reports: Hx Anxiety, Hx Attention Deficit Hyperactivity Disorder, Hx Bipolar Disorder, Hx Depression - Immunizations Immunizations up to date: Yes Hx Diphtheria, Pertussis, Tetanus Vaccination: Yes Review of Systems - Review of Systems Constitutional: No symptoms reported EENT: No symptoms reported Cardiovascular: No symptoms reported Respiratory: No symptoms reported Gastrointestinal: No symptoms reported Genitourinary: No symptoms reported Female Genitourinary: No symptoms reported Musculoskeletal: No symptoms reported Skin: See HPI Physical Exam - Vital signs Vitals: Temp Pulse Resp BP Pulse Ox 98 F 85 16 124/60 97 12/05/19 08:31 12/05/19 08:31 12/05/19 08:31 12/05/19 08:31 12/05/19 08:31 Interpretation: Normal - Notes Notes: Adult General: GENERAL: Alert, interacts well. No acute distress HEAD: Normocephalic, atraumatic EYES: Pupils equal, round and reactive to light. ENT: Oral mucosa moist, tongue midline. Oropharynx unremarkable. Airway patent. Nares patent. NECK: Full range of motion. Supple. Trachea midline. LUNGS: Clear to auscultation bilaterally, no wheezes, rales, or rhonchi. No respiratory distress. Nontender chest wall. HEART: Regular rate and rhythm. No murmurs, rubs or gallops. ABDOMEN: Soft, nontender. Nondistended. Bowel sounds present in all 4 quadrants. GENITOURINARY: Deferred EXTREMITIES: Moves all 4 extremities spontaneously. BACK: Moves all extremities with full range of motion. NEUROLOGICAL: Alert and oriented x3. Normal speech. Strength 5/ 5 in all extremities. PSYCH: Normal affect, normal mood. SKIN: Multiple papules on left posterior forearm. No erythema, warmth or swelling. Course - Re-evaluation Re-evalutation: 12/05/19 09:41 Patient with papular rash on left forearm. It is pruritic. Denies any constitutional symptoms. There is no erythema or scaling. No signs of infection. 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 Recommend patient avoid any irritants to include aircraft tool maker, or wear gloves or arm coverings to prevent irritation. Will prescribe hydrocortisone. Recommend patient follow-up with PCM as soon as possible. Can return to the ER if symptoms worsen or she develops new symptoms. - Vital Signs Vital signs: Temp Pulse Resp BP Pulse Ox 98 F 85 16 124/60 97 12/05/19 09:23 12/05/19 08:31 12/05/19 08:31 12/05/19 08:31 12/05/19 08:31 Discharge - Discharge Clinical Impression: Dermatitis Disposition: HOME, SELF-CARE Instructions: Corticosteroid Medication ([facility]), Topical Steroid Cream or Ointment ([facility]) Additional Instructions: Please follow-up with your PCM as soon as possible. Return to the ER symptoms worsen or he develop new symptoms. Please take medication as prescribed. Prescriptions: Hydrocortisone [Hydrocortisone 1% Cream 28.35 Gm] 1 applic TP BID #1 tube Forms: Return to Work
== END 2019-12-05 09:57 | disposition home or self-care (01) ==
LOC: ER 08:26
DX: L30.9 Dermatitis, unspecified (principal); Z91.038 Other insect allergy status; E11.9 Type 2 diabetes mellitus without complications; F17.200 Nicotine dependence, unspecified, uncomplicated
CPT/HCPCS: 99282

== ENCOUNTER 2020-01-21 16:42 | Emergency (ER) | payer MEDICAID | END 2020-01-22 04:25 | disposition left against medical advice (07) | LOC: ER 16:42 | DX: Z53.21 Procedure and treatment not carried out due to patient leaving prior to being seen by health care provider (principal) ==

== ENCOUNTER 2020-01-22 09:12 | Emergency (ER) | payer MEDICAID ==
--- NOTE | 2020-01-22 10:43 | RADIOLOGY REPORT (SQ) ---
EXAM DESCRIPTION: CHEST 2 VIEWS IMAGES COMPLETED DATE/TIME: 01/22/2020 10:32 am REASON FOR STUDY: cp COMPARISON: None. TECHNIQUE: Frontal and lateral radiographic views of the chest acquired. NUMBER OF VIEWS: Two view. LIMITATIONS: None. FINDINGS: LUNGS AND PLEURA: No opacities, masses or pneumothorax. No pleural effusion. MEDIASTINUM AND HILAR STRUCTURES: No masses or contour abnormalities. HEART AND VASCULAR STRUCTURES: Heart normal size. No evidence for failure. BONES: No acute findings. HARDWARE: None in the chest. OTHER: No other significant finding. IMPRESSION: NO SIGNIFICANT RADIOGRAPHIC FINDING IN THE CHEST. TECHNICAL DOCUMENTATION: JOB ID: [id number] 2010 [employer]- All Rights Reserved Reading location - IP/workstation name: [email or web address]
--- NOTE | 2020-01-22 11:40 | ER Document Report ---
ED General - General Chief Complaint: Chest Congestion Stated Complaint: PAINFUL BREATHING Time Seen by Provider: 01/22/20 09:32 Mode of Arrival: Ambulatory Information source: Patient TRAVEL OUTSIDE OF THE [place] IN LAST 30 DAYS: No - HPI Notes: Patient complains of chest pain. This started approximate 3 days ago. The pain is worse with deep breath and better without it. It is mainly only with breathing in deeply. She states she was lifting some heavy furniture just before this started. She denies any significant cough or cold symptoms. No known covert virus exposures. No fever. No significant radiation of the pain. It is a sharp pain. It is intermittent. It is mild to moderate. - Related Data Allergies/Adverse Reactions: No Known Drug Allergies Allergy (Verified 10/01/19 21:58) mosquitoes Allergy (Unknown, Uncoded 10/01/19 21:58) Edema Home Medications: Lorazapam. Albuterol Inhaler. Metformin. Lexapro Past Medical History - General Information source: Patient - Social History Smoking Status: Current Every Day Smoker Frequency of alcohol use: None Drug Abuse: None Family History: Arthritis, DM, Hypertension, Malignancy, Thyroid Disfunction Neurological Medical History: Denies: Hx Seizures - pseudoseizures Endocrine Medical History: Reports: Hx Diabetes Mellitus Type 2 - patient takes Glyburide Renal/ Medical History: Denies: Hx Peritoneal Dialysis Psychiatric Medical History: Reports: Hx Anxiety, Hx Attention Deficit Hyperactivity Disorder, Hx Bipolar Disorder, Hx Depression - Immunizations Immunizations up to date: Yes Hx Diphtheria, Pertussis, Tetanus Vaccination: Yes Review of Systems - Review of Systems Constitutional: denies: Chills, Fever Cardiovascular: Chest pain. denies: Palpitations Respiratory: denies: Short of breath, Wheezing -: Yes All other systems reviewed and negative Physical Exam - Vital signs Vitals: Pulse Resp BP Pulse Ox 57 L 20 129/65 H 99 01/22/20 09:19 01/22/20 09:19 01/22/20 09:19 01/22/20 09:19 Interpretation: Normal - General General appearance: Appears well, Alert - HEENT Head: Normocephalic, Atraumatic Eyes: Normal Pupils: PERRL - Respiratory Respiratory status: No respiratory distress Chest status: Nontender Breath sounds: Normal Chest palpation: Normal - Cardiovascular Rhythm: Regular Heart sounds: Normal auscultation Murmur: No - Abdominal Inspection: Normal Distension: No distension Bowel sounds: Normal Tenderness: Nontender Organomegaly: No organomegaly - Back Back: Normal, Nontender - Extremities General upper extremity: Normal inspection, Nontender, Normal color, Normal ROM, Normal temperature General lower extremity: Normal inspection, Nontender, Normal color, Normal ROM, Normal temperature, Normal weight bearing. No: Krista's sign - Neurological Neuro grossly intact: Yes Cognition: Normal Orientation: AAOx4 Abraham Coma Scale Eye Opening: Spontaneous Abraham Coma Scale Verbal: Oriented Abraham Coma Scale Motor: Obeys Commands Cumming Coma Scale Total: 15 Speech: Normal Motor strength normal: LUE, RUE, LLE, RLE Sensory: Normal - Psychological Associated symptoms: Normal affect, Normal mood - Skin Skin Temperature: Warm Skin Moisture: Dry Skin Color: Normal Course - Vital Signs Vital signs: Temp Pulse Resp BP Pulse Ox 98.5 F 57 L 20 129/65 H 99 01/22/20 09:20 01/22/20 09:19 01/22/20 09:19 01/22/20 09:19 01/22/20 09:19 - Diagnostic Test Radiology reviewed: Image reviewed, Reports reviewed Discharge - Discharge Clinical Impression: Chest wall discomfort Condition: Stable Disposition: HOME, SELF-CARE Instructions: Chest Wall Pain ([facility]) Prescriptions: Tramadol HCl [Ultram] 50 mg PO Q6 PRN 3 Days #8 tablet PRN Reason: Forms: Return to Work Referrals: [facility] [Provider Group] - Follow up in 1 week
[2020-01-22 11:56] VITALS: BP 110/53
--- NOTE | 2020-01-22 14:18 | EKG REPORT ---
SEVERITY:- NORMAL ECG - SINUS BRADYCARDIA : Confirmed by: Delmar Givens MD 22-Jan-2020 14:17:05
== END 2020-01-22 11:57 | disposition home or self-care (01) ==
LOC: ER 09:12
DX: R07.89 Other chest pain (principal); X50.0XXA Overexertion from strenuous movement or load, initial encounter; F17.200 Nicotine dependence, unspecified, uncomplicated; E11.9 Type 2 diabetes mellitus without complications; F41.9 Anxiety disorder, unspecified; F32.9 Major depressive disorder, single episode, unspecified; Z79.899 Other long term (current) drug therapy; Z79.84 Long term (current) use of oral hypoglycemic drugs; Z91.038 Other insect allergy status
CPT/HCPCS: 36415; 71046; 85379; 93005; 93010; 99284

== ENCOUNTER 2020-05-04 18:41 | Emergency (ER) | payer MEDICAID ==
[2020-05-04 18:47] VITALS: BP 116/59
--- NOTE | 2020-05-04 18:50 | ER Document Report ---
ED Medical Screen (RME) - General Chief Complaint: Nausea/Vomiting/Diarrhea Stated Complaint: NAUSEA,VOMITING,DIARRHEA Time Seen by Provider: 05/04/20 18:46 Mode of Arrival: Ambulatory Information source: Patient Notes: 19-year-old female presented to ED for complaint of nausea vomiting diarrhea cough and congestion. She states she was told at work she could not come back to she quits coughing because she is incontinent of urine when she gets to coughing. She also has abdominal cramping. I have ordered blood urine test chest x-ray flu and Covid testing. Patient is alert oriented respirations regular nonlabored at this time. The patient was evaluated during the global Covid 19 pandemic, and that diagnosis was suspected/considered upon their initial presentation. Their evaluation, treatment and testing was consistent with current guidelines for patients who present with complaints or symptoms that may be related to Covid 19. I have greeted and performed a rapid initial assessment of this patient. A comprehensive ED assessment and evaluation of the patient, analysis of test results and completion of medical decision making process will be conducted by an additional ED providers. TRAVEL OUTSIDE OF THE [place] IN LAST 30 DAYS: No - Related Data Allergies/Adverse Reactions: No Known Drug Allergies Allergy (Verified 10/01/19 21:58) mosquitoes Allergy (Unknown, Uncoded 10/01/19 21:58) Edema Past Medical History - Social History Family history: DM, Malignancy Neurological Medical History: Denies: Hx Seizures - pseudoseizures Endocrine Medical History: Reports: Hx Diabetes Mellitus Type 2 - patient takes Glyburide Renal/ Medical History: Denies: Hx Peritoneal Dialysis Psychiatric Medical History: Reports: Hx Anxiety, Hx Attention Deficit Hyperactivity Disorder, Hx Bipolar Disorder, Hx Depression - Immunizations Immunizations up to date: Yes Hx Diphtheria, Pertussis, Tetanus Vaccination: Yes Physical Exam - Vital signs Vitals: Temp Pulse Resp BP Pulse Ox 97.9 F 82 16 116/59 L 99 05/04/20 18:47 05/04/20 18:47 05/04/20 18:47 05/04/20 18:47 05/04/20 18:47 Course - Vital Signs Vital signs: Temp Pulse Resp BP Pulse Ox 97.9 F 82 16 116/59 L 99 05/04/20 18:47 05/04/20 18:47 05/04/20 18:47 05/04/20 18:47 05/04/20 18:47
[2020-05-04] MEDS ORDERED: NORMAL SALINE 1000 ML 1,000 ML IV ONE (18:51)
[2020-05-04] MEDS ORDERED: HYDROCODONE BIT/HOMATROPINE 5-1.5 MG TABLET PO ONE (20:03)
--- NOTE | 2020-05-04 20:07 | ER Document Report ---
ED General - General Chief Complaint: Cough Stated Complaint: NAUSEA,VOMITING,DIARRHEA Time Seen by Provider: 05/04/20 18:46 Mode of Arrival: Ambulatory Notes: Patient is a 19-year-old female with a history of obesity, pseudoseizure, anxiety, depression who is a current everyday smoker who presents to the emergency department with a chief complaint of cough. States it began about 2 days ago reports dry in nature. States is a very frequent raspy cough. States she gets pain shooting into her head and her chest with a cough. States that she is sore in the upper mid abdomen in relation to the frequency of cough. States that when she coughs hard she has some urinary incontinence. She states that she has had some mild nausea associated. States that she just started having some diarrhea today but very fleeting in nature. States that her /significant other has been sick with some diarrhea for a couple of days but no cough cold symptoms like the patient. Patient denies any fever. No recent travel or known sick contacts. TRAVEL OUTSIDE OF THE [place] IN LAST 30 DAYS: No - Related Data Allergies/Adverse Reactions: No Known Drug Allergies Allergy (Verified 05/04/20 19:37) mosquitoes Allergy (Unknown, Uncoded 05/04/20 19:37) Edema Home Medications: Metformin Past Medical History - General Information source: Patient - Social History Smoking Status: Current Every Day Smoker Family History: Arthritis, DM, Hypertension, Malignancy, Thyroid Disfunction Patient has homicidal ideation: No Neurological Medical History: Denies: Hx Seizures - pseudoseizures Endocrine Medical History: Reports: Hx Diabetes Mellitus Type 2 - patient takes Glyburide Renal/ Medical History: Denies: Hx Peritoneal Dialysis Psychiatric Medical History: Reports: Hx Anxiety, Hx Attention Deficit Hyperactivity Disorder, Hx Bipolar Disorder, Hx Depression - Immunizations Immunizations up to date: Yes Hx Diphtheria, Pertussis, Tetanus Vaccination: Yes Review of Systems - Review of Systems Constitutional: denies: Fever EENT: denies: Ear discharge Cardiovascular: denies: Syncope Respiratory: Cough Gastrointestinal: denies: Constipation Genitourinary: denies: Frequency Female Genitourinary: denies: Heavy/abnormal periods Musculoskeletal: denies: Neck pain Skin: denies: Dryness Hematologic/Lymphatic: denies: Easy bleeding Neurological/Psychological: denies: Gait changes Physical Exam - Vital signs Vitals: Temp Pulse Resp BP Pulse Ox 97.9 F 82 16 116/59 L 99 05/04/20 18:47 05/04/20 18:47 05/04/20 18:47 05/04/20 18:47 05/04/20 18:47 - General General appearance: Appears well, Alert In distress: None - HEENT Head: Normocephalic, Atraumatic Eyes: Normal Conjunctiva: Normal Extraocular movements intact: Yes Pupils: PERRL Ears: Normal External canal: Normal Tympanic membrane: Normal Nasal: Normal Mouth/Lips: Normal Mucous membranes: Normal Pharynx: Normal Neck: Normal - Respiratory Respiratory status: No respiratory distress Chest status: Nontender Breath sounds: Normal Chest palpation: Normal Notes: Dry cough - Cardiovascular Rhythm: Regular Heart sounds: Normal auscultation - Abdominal Inspection: Normal Distension: No distension Bowel sounds: Normal Tenderness: Nontender Organomegaly: No organomegaly - Neurological Neuro grossly intact: Yes Cognition: Normal Orientation: AAOx4 - Psychological Associated symptoms: Normal affect, Normal mood - Skin Skin Temperature: Warm Skin Moisture: Dry Skin Color: Normal Course - Re-evaluation Re-evalutation: 05/04/20 21:45 Flu swabs negative. Chest x-ray negative for acute process per radiologist. Work-up largely unremarkable otherwise. Pending COVID-19 testing. Patient will be sent home on Tessalon for cough and Zofran for any nausea. Encouraged her to rest drink plenty of clear fluids and advised immune supplementation with [id number] items such as vitamin C, vitamin D and zinc per label instructions. She will self quarantine in her home for the next 3 to 5 days pending the COVID-19 testing results as she is a patient under investigation. She will be notified by phone with the results and given further instructions if positive. Counseled her regarding the importance of outpatient follow-up and advised she return here or any ER immediately with any new, persistent or worsening symptoms. She verbalized understood and agreed. - Vital Signs Vital signs: Temp Pulse Resp BP Pulse Ox 97.9 F 82 16 116/59 L 99 05/04/20 18:47 05/04/20 18:47 05/04/20 18:47 05/04/20 18:47 05/04/20 18:47 - Laboratory Result Diagrams: 05/04/20 20:31 05/04/20 20:31 Laboratory results interpreted by me: 05/04/20 05/04/20 05/04/20 20:31 20:31 20:31 WBC 11.9 H Chloride 108 H Glucose 157 H Urine Protein 30 H Urine Urobilinogen 2.0 H Discharge - Discharge Clinical Impression: Person under investigation for COVID-19 Condition: Stable Disposition: HOME, SELF-CARE Instructions: COVID-19 Guidance for Persons Under Investigation Additional Instructions: Please isolate and self quarantine in your home for the next 3 to 5 days pending the test results of your COVID-19 swab. You will be alerted by phone to the results. If positive you will be given further instructions and guidance by healthcare professional. Please follow-up with your doctor by phone for outpatient checkup. Please return here or any ER immediately with any new, persistent or worsening symptoms. Prescriptions: Benzonatate [Tessalon Perles 100 mg Capsule] 200 mg PO Q8HP PRN #40 capsule PRN Reason: Ondansetron [Zofran Odt 4 mg Tablet] 4 mg PO Q8 PRN #15 tab.rapdis PRN Reason: Forms: Return to Work
[2020-05-04] MEDS ORDERED: BENZONATATE 100 MG CAPSULE PO ONE (20:14)
--- NOTE | 2020-05-04 20:50 | RADIOLOGY REPORT (SQ) ---
CLINICAL INDICATION: Cough congestion. TECHNIQUE: A single portable AP view was obtained of the chest at 1955 hours. COMPARISON: None. FINDINGS: The cardiomediastinal silhouette is normal. The lungs are grossly clear. No evidence of effusion or pneumothorax. The visualized bones are unremarkable. IMPRESSION: No evidence of active intrathoracic disease.
[2020-05-04 20:51] LABS: ABSOLUTE BASOPHILS # (AUTO) 0.1 10^3/uL (0.0-0.2); ABSOLUTE EOSINOPHILS # (AUTO) 0.5 10^3/uL (0.0-0.6); ABSOLUTE LYMPHOCYTES (AUTO) 4.2 10^3/uL (0.5-4.7); ABSOLUTE MONOCYTES (AUTO) 0.8 10^3/uL (0.1-1.4); ABSOLUTE NEUT (AUTO) 6.2 10^3/uL (1.7-8.2); BASOPHILS % (AUTO) 0.9 % (0-2); EOSINOPHILS % (AUTO) 4.2 % (0-6); HEMATOCRIT 39.7 % (36.0-47.0); HEMOGLOBIN 13.9 g/dL (12.0-15.5); LYMPHOCYTES % (AUTO) 35.6 % (13-45); MEAN CORPUSCULAR HEMOGLOBIN 31.5 pg (27.0-33.4); MEAN CORPUSCULAR HGB CONC 35.1 g/dL (32.0-36.0); MEAN CORPUSCULAR VOLUME 90 fl (80-97); PLATELET COUNT 254 10^3/uL (150-450); RED BLOOD COUNT 4.42 10^6/uL (3.72-5.28); RED CELL DISTRIBUTION WIDTH 13.1 % (11.5-14.0); SEGMENTED NEUTROPHILS % (AUTO) 52.3 % (42-78); TOTAL CELLS COUNTED % (AUTO) 100 %; WHITE BLOOD COUNT 11.9 10^3/uL (4.0-10.5)
[2020-05-04 21:14] LABS: APPEARANCE,URINE SLIGHTLY-CLOUDY; BILIRUBIN,URINE NEGATIVE (NEGATIVE); COLOR,URINE YELLOW; GLUCOSE, URINE NEGATIVE (NEGATIVE); KETONES,URINE NEGATIVE (NEGATIVE); LEUKOCYTE ESTERASE,URINE NEGATIVE (NEGATIVE); NITRITE,URINE NEGATIVE (NEGATIVE); PROTEIN,URINE 30 mg/dL (NEGATIVE); URINE SPECIFIC GRAVITY 1.033
[2020-05-04 21:15] LABS: ALBUMIN 4.1 g/dL (3.5-5.0); ALKALINE PHOSPHATASE 124 U/L (38-126); ANION GAP 8 (5-19); ASPARTATE AMINO TRANSFERASE 27 U/L (14-36); BILIRUBIN,DIRECT 0.3 mg/dL (0.0-0.4); BILIRUBIN,TOTAL 0.3 mg/dL (0.2-1.3); BLOOD UREA NITROGEN 10 mg/dL (7-20); CALCIUM 9.3 mg/dL (8.4-10.2); CARBON DIOXIDE 23 mmol/L (22-30); CHLORIDE 108 mmol/L (98-107); GLUCOSE 157 mg/dL (75-110); POTASSIUM 4.1 mmol/L (3.6-5.0); TOTAL PROTEIN 6.9 g/dL (6.3-8.2)
[2020-05-04 21:17] LABS: A TYPE INFLUENZA AG NEGATIVE (NEGATIVE); B INFLUENZA AG NEGATIVE (NEGATIVE)
== END 2020-05-04 22:17 | disposition home or self-care (01) ==
LOC: ER 18:41
DX: Z20.828 Contact with and (suspected) exposure to other viral communicable diseases (principal); R05 Cough; R10.9 Unspecified abdominal pain; R51.9 Headache, unspecified; R07.9 Chest pain, unspecified; R11.2 Nausea with vomiting, unspecified; R19.7 Diarrhea, unspecified; F17.200 Nicotine dependence, unspecified, uncomplicated; E11.9 Type 2 diabetes mellitus without complications; Z79.84 Long term (current) use of oral hypoglycemic drugs; Z91.038 Other insect allergy status
CPT/HCPCS: 99284; 96360; 96361; 36415; 87086; 83690; 85025; 87635; 80053; 81001; 87804; 71045; J3490; J7030; C9803

== ENCOUNTER 2020-05-19 13:57 | Emergency (ER) | payer MEDICAID ==
[2020-05-19] MEDS ORDERED: PSEUDOEPHEDRINE HCL 30 MG TABLET PO ONE (15:49)
--- NOTE | 2020-05-19 15:55 | ER Document Report ---
ED Medical Screen (RME) - General Stated Complaint: COUGHING CHEST PAIN CONGESTION Time Seen by Provider: 05/19/20 15:41 Primary Care Provider: MARLEEN WEN DO [Primary Care Provider] - Follow up as needed Notes: Patient is a 20-year-old female who presents to the emergency department with a chief complaint of cough. Patient states that she has had a cough for the past 2 weeks. Patient was tested for COVID-19 last week and this was negative. He has been taking Tessalon Perles, ibuprofen, and Tylenol. Exam: Cough noted. Chest x-ray I have greeted and performed a rapid initial assessment of this patient. A comprehensive ED assessment and evaluation of the patient, analysis of test results and completion of medical decision making process will be conducted by an additional ED providers. TRAVEL OUTSIDE OF THE [place] IN LAST 30 DAYS: No - Related Data Allergies/Adverse Reactions: No Known Drug Allergies Allergy (Verified 05/04/20 19:37) mosquitoes Allergy (Unknown, Uncoded 05/04/20 19:37) Edema Past Medical History - Social History Family history: DM, Malignancy Neurological Medical History: Denies: Hx Seizures - pseudoseizures Endocrine Medical History: Reports: Hx Diabetes Mellitus Type 2 - patient takes Glyburide Renal/ Medical History: Denies: Hx Peritoneal Dialysis Psychiatric Medical History: Reports: Hx Anxiety, Hx Attention Deficit Hyperactivity Disorder, Hx Bipolar Disorder, Hx Depression - Immunizations Immunizations up to date: Yes Hx Diphtheria, Pertussis, Tetanus Vaccination: Yes Physical Exam - Vital signs Vitals: Temp Pulse Resp BP Pulse Ox 98.2 F 90 22 H 117/64 98 05/19/20 14:23 05/19/20 14:23 05/19/20 14:23 05/19/20 14:23 05/19/20 14:23 Course - Vital Signs Vital signs: Temp Pulse Resp BP Pulse Ox 98.2 F 90 22 H 117/64 98 05/19/20 14:23 05/19/20 14:23 05/19/20 14:23 05/19/20 14:23 05/19/20 14:23 Doctor's Discharge - Discharge Referrals: MARLEEN WEN DO [Primary Care Provider] - Follow up as needed
--- NOTE | 2020-05-19 16:13 | RADIOLOGY REPORT (SQ) ---
EXAM DESCRIPTION: CHEST 2 VIEWS IMAGES COMPLETED DATE/TIME: 05/19/2020 4:00 pm REASON FOR STUDY: cough x1 week COMPARISON: 05/04/2020 EXAM PARAMETERS: NUMBER OF VIEWS: two views TECHNIQUE: Digital Frontal and Lateral radiographic views of the chest acquired. RADIATION DOSE: NA LIMITATIONS: none FINDINGS: LUNGS AND PLEURA: No opacities, masses or pneumothorax. No pleural effusion. MEDIASTINUM AND HILAR STRUCTURES: No masses or contour abnormalities. HEART AND VASCULAR STRUCTURES: Heart normal size. No evidence for failure. BONES: No acute findings. HARDWARE: None in the chest. OTHER: No other significant finding. IMPRESSION: NO ACUTE RADIOGRAPHIC FINDING IN THE CHEST. TECHNICAL DOCUMENTATION: JOB ID: [id number] 2010 [employer]- All Rights Reserved Reading location - IP/workstation name: [email or web address]
[2020-05-19] MEDS ORDERED: IPRATROPIUM/ALBUTEROL 0.5-2.5 MG/3 ML AMPUL NEB ONE (16:47)
--- NOTE | 2020-05-19 17:33 | ER Document Report ---
ED Respiratory Problem - General Chief Complaint: Cough Stated Complaint: COUGHING CHEST PAIN CONGESTION Time Seen by Provider: 05/19/20 15:41 Primary Care Provider: MARLEEN WEN DO [Primary Care Provider] - Follow up in 3-5 days Notes: Patient is a 20-year-old female who presents emergency department with a chief complaint of a cough, shortness of breath, and clear rhinorrhea that has been going on for the past about 2 weeks. Patient denies any fever, body aches, or chills. Patient endorses cough induced vomiting. Patient was placed on [employer] and states, "they do not work." Patient was tested for COVID- 19, flu, and strep, which were all negative. TRAVEL OUTSIDE OF THE [place] 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 Denies recent unintentional weight loss. Denies fever, chills, or sweats. EENT: Denies eye, ear, throat, or mouth pain, discharge, or symptoms. Denies nasal or sinus congestion. CARDIOVASCULAR: Denies chest pain. RESPIRATORY: See HPI. GASTROINTESTINAL: Denies nausea, vomiting, and diarrhea. Denies abdominal pain. Denies constipation. GENITOURINARY: Denies difficulty urinating, burning, blood in urine, urgency or frequency. MUSCULOSKELETAL: Denies neck and back pain. Denies joint pain or swelling. SKIN: Denies rash, itchiness, or lesions HEMATOLOGIC : Denies easy bruising or bleeding. LYMPHATIC: Denies swollen, painful, enlarged glands. NEUROLOGICAL: Denies no numbness or tingling denies weakness. Denies headache. Denies altered mental status. Denies alteration in speech. PSYCHIATRIC: Denies stress, anxiety, alteration in sleep patterns, or depression. All other systems reviewed and negative. Physical Exam - Vital signs Vitals: Temp Pulse Resp BP Pulse Ox 98.2 F 90 22 H 117/64 98 05/19/20 14:23 05/19/20 14:23 05/19/20 14:23 05/19/20 14:23 05/19/20 14:23 - Notes Notes: PHYSICAL EXAMINATION: GENERAL: Appears well, healthy, well-nourished, no acute distress. HEAD: Normocephalic, atraumatic. EYES: PERRL, conjunctiva normal, all extraocular movements intact, sclera nonicteric ENT: Moist mucous membranes. Clear rhinorrhea noted. Tympanic membrane noninjected and appears normal. NECK: Supple, no noticeable swelling, redness, rash. Normal range of motion. LUNGS: Expiratory wheezes noted throughout all lung otero. Cough noted CARDIOVASCULAR: S1-S2, regular rate, regular rhythm. Radial pulses 2+, normal. ABDOMEN: Normoactive bowel sounds. Soft, nontender, no guarding, no rebound tenderness, and no masses palpated. EXTREMITIES: Normal strength and range of motion, no pitting or edema. No cyanosis. NEUROLOGICAL: Moves all extremities upon command. Strength 5/5 in all extremities. PSYCH: Normal mood, normal affect. SKIN: Warm, dry. No rash, lesions, ulcerations noted. Normal skin turgor. Course - Re-evaluation Re-evalutation: 05/19/20 Chest x-ray is unremarkable. No pneumonia noted. Patient states that she feels better after receiving Sudafed and a breathing treatment. We will hold off on giving the patient steroids, but advised her to continue Sudafed. We will place her on Flonase. We will also send the patient with an albuterol inhaler and spacer. Lungs have greatly improved after breathing treatment. I have a low suspicion for COVID-19, as this was negative at her previous visit from here in the emergency department. Advised the patient get plenty of rest. She is in agreement with this plan. Follow-up precautions were given. Verbal discharge instructions were given to the patient. They verbalized understanding. They are stable for discharge. - Vital Signs Vital signs: Temp Pulse Resp BP Pulse Ox 98.4 F 59 L 20 127/62 H 98 05/19/20 17:40 05/19/20 17:40 05/19/20 17:40 05/19/20 17:40 05/19/20 17:40 Discharge - Discharge Clinical Impression: URI (upper respiratory infection) Qualifiers: URI type: unspecified URI Qualified Code(s): J06.9 - Acute upper respiratory infection, unspecified Condition: Stable Disposition: HOME, SELF-CARE Additional Instructions: Your symptoms are most likely due to a viral infection it should resolve over the next 7-14 days. Start Flonase to help with your runny nose. You can also take [id number] Sudafed 60 mg every 6 hours as needed. Use the albuterol inhaler as needed for shortness of breath or dignity breathing. You may also use tylenol or ibuprofen as needed for aches and thorat discomfort. Please be sure to drink plenty of fluids and get rest. Return to the emergency department he began having difficulty breathing, chest pain, persistent vomiting, or any other symptoms that are concerning to you. Prescriptions: Fluticasone Propionate [Flonase Nasal [place] 50 Mcg/[place] 16 gm] 2 sprays NASL DAILY #1 inhaler Albuterol Sulfate [Proair HFA Inhalation Aerosol 8.5 gm MDI] 2 puff IH Q4H PRN #1 mdi PRN Reason: Inhaler, Assist Devices [Space Chamber] 1 each MC ASDIR PRN #1 spacer PRN Reason: Referrals: MARLEEN WEN DO [Primary Care Provider] - Follow up in 3-5 days
[2020-05-19 17:41] VITALS: BP 127/62
== END 2020-05-19 17:51 | disposition home or self-care (01) ==
LOC: ER 13:57
DX: J06.9 Acute upper respiratory infection, unspecified (principal); R05 Cough; R07.9 Chest pain, unspecified; R09.81 Nasal congestion; F17.200 Nicotine dependence, unspecified, uncomplicated; Z79.84 Long term (current) use of oral hypoglycemic drugs; E11.9 Type 2 diabetes mellitus without complications
CPT/HCPCS: 71046; 99283